=== PATIENT | male | born 1975 | race Caucasian/White ===

== ENCOUNTER → 2017-01-26 | Outpatient (CLI) | payer OTHER ==
[~2017-01-26] MED LIST: AMOXICILLIN500 M2 PO; BRIN10TA PO; ELIQUIS2.5 M1 PO; ELIQUIS5 M1 PO; HYDROCODONE BIT1 T11 PO; NOVAPLUS V0.09 MG/Ac IH; PROAIR RESPICL90 MCG INH; VENTOLIN 02.5 MG/3 M INH
== END | disposition home or self-care (01) ==
LOC: RESCLI 03:40
DX: Z00.01 Encounter for general adult medical examination with abnormal findings (principal); I82.492 Acute embolism and thrombosis of other specified deep vein of left lower extremity; I26.99 Other pulmonary embolism without acute cor pulmonale; J45.30 Mild persistent asthma, uncomplicated

== ENCOUNTER → 2017-03-04 | Outpatient (CLI) | payer OTHER ==
[2017-03-04 10:13] LABS: BASO # 0.1 10*3/uL (0.0-0.1); BASO % 0.9 % (0.0-1.0); EOS # 0.2 10*3/uL (0.0-0.4); EOS % 3.2 % (1.0-4.0); HEMATOCRIT 44.1 % (42.0-52.0); HEMOGLOBIN 14.5 g/dl (14.0-18.0); LYMPH # 1.9 10*3/uL (1.3-4.4); LYMPH % 29.7 % (27.0-41.0); MEAN CELL VOLUME 96.7 fl (80.0-94.0); MEAN CORPUSCULAR HGB 31.8 pg (27.0-31.0); MEAN CORPUSCULAR HGB CONC 32.9 g/dl (33.0-37.0); MEAN PLATELET VOLUME 10.4 fl (9.6-12.3); MONO # 0.5 10*3/uL (0.1-1.0); MONO % 7.7 % (3.0-9.0); NEUT # 3.7 10*3/uL (2.3-7.9); NEUT % 58.2 % (47.0-73.0); PLATELET COUNT AUTOMATED 231 10*3/uL (130-400); RED BLOOD COUNT 4.56 10*6/uL (4.50-5.90); RED CELL DISTRI WIDTH 13.3 % (0-14.5); WHITE BLOOD COUNT 6.3 10*3/uL (4.8-10.8)
[2017-03-04 10:31] LABS: HEMOGLOBIN A1c 5.5 % (4.8-5.6)
[2017-03-04 10:41] LABS: ALBUMIN 3.3 gm/dl (3.1-4.5); ALKALINE PHOSPHATASE 58 U/L (45-117); BILIRUBIN, TOTAL 0.6 mg/dl (0.2-1.0); BUN 16 mg/dl (7-24); CARBON DIOXIDE 27 mmol/L (21-32); CHLORIDE 106 mmol/L (98-107); CHOLESTEROL 161 mg/dL (<200); EST GLOM FILT AFRICAN AMERICAN > 60 ml/min; GLUCOSE 96 mg/dL (65-99); HDL CHOLESTEROL 35 mg/dl (40-60); LDL CHOLESTEROL 98 mg/dL (9-159); SGOT/AST 19 IU/L (3-35); SGPT/ALT 37 U/L (12-78); SODIUM 143 mmol/L (136-145); TOTAL PROTEIN 6.8 gm/dL (6.4-8.2); TRIGLYCERIDES 140 mg/dl (<150); VLDL CHOLESTEROL 28 mg/dL (6-40)
== END | disposition home or self-care (01) ==
LOC: RESCLI 03:25 → LAB 03:25 → RESCLI 14:35
PROVIDERS: Internal Medicine
DX: Z00.00 Encounter for general adult medical examination without abnormal findings (principal)

== ENCOUNTER → 2017-09-08 | Outpatient (CLI) | payer OTHER | END | disposition home or self-care (01) | LOC: RESCLI 03:34 | DX: J45.909 Unspecified asthma, uncomplicated (principal); I26.92 Saddle embolus of pulmonary artery without acute cor pulmonale; G47.30 Sleep apnea, unspecified; E66.01 Morbid (severe) obesity due to excess calories; F32.9 Major depressive disorder, single episode, unspecified ==

== ENCOUNTER → 2018-02-03 | Outpatient (CLI) | payer OTHER | END | disposition home or self-care (01) | LOC: RESCLI 07:57 | DX: F32.9 Major depressive disorder, single episode, unspecified (principal); M54.6 Pain in thoracic spine; G47.10 Hypersomnia, unspecified; J45.30 Mild persistent asthma, uncomplicated; E66.01 Morbid (severe) obesity due to excess calories; I26.92 Saddle embolus of pulmonary artery without acute cor pulmonale; G47.30 Sleep apnea, unspecified; E55.9 Vitamin D deficiency, unspecified; F17.210 Nicotine dependence, cigarettes, uncomplicated ==

== ENCOUNTER → 2018-03-19 | Outpatient (CLI) | payer OTHER | END | disposition home or self-care (01) | LOC: RAD 10:17 | DX: M54.89 Other dorsalgia (principal); G89.29 Other chronic pain ==

== ENCOUNTER 2019-10-14 15:00 | Emergency (ER) | payer OTHER ==
[~2019-10-14] VITALS: Ht 175.2 cm; Wt 172.4 kg
[2019-10-14] MEDS ORDERED: PROAIR HFA8.5 GM INH (15:13)
== END 2019-10-14 16:08 | disposition home or self-care (01) ==
LOC: ED 15:00
DX: J45.901 Unspecified asthma with (acute) exacerbation (principal); Z86.718 Personal history of other venous thrombosis and embolism; Z86.711 Personal history of pulmonary embolism

== ENCOUNTER → 2020-04-04 | Outpatient (CLI) | payer OTHER ==
[~2020-04-04] MED LIST changes: +PROAIR HFA8.5 GM INH
== END | disposition home or self-care (01) ==
LOC: RESCLI 13:01
DX: Z71.3 Dietary counseling and surveillance (principal); J45.909 Unspecified asthma, uncomplicated; E66.01 Morbid (severe) obesity due to excess calories; F41.9 Anxiety disorder, unspecified; M54.5 Low back pain; E03.9 Hypothyroidism, unspecified; R53.83 Other fatigue; G47.30 Sleep apnea, unspecified; Z86.711 Personal history of pulmonary embolism; Z79.899 Other long term (current) drug therapy

== ENCOUNTER → 2020-04-06 | Outpatient (CLI) | payer OTHER | END | disposition home or self-care (01) | LOC: LAB 09:23 | DX: E29.1 Testicular hypofunction (principal) ==

== ENCOUNTER → 2020-07-26 | Outpatient (CLI) | payer OTHER | END | disposition home or self-care (01) | LOC: COVID19 10:30 | PROVIDERS: ATTEND Physician Assistant | DX: Z20.828 Contact with and (suspected) exposure to other viral communicable diseases (principal) ==

== ENCOUNTER → 2020-08-01 | Outpatient (CLI) | payer OTHER ==
[2020-08-01 10:18] LABS: HEMATOCRIT 48.9 % (42.0-52.0); MEAN CELL VOLUME 95.1 fl (80.0-94.0); MEAN CORPUSCULAR HGB CONC 31.5 g/dl (33.0-37.0); MEAN PLATELET VOLUME 10.4 fl (9.6-12.3); RED BLOOD COUNT 5.14 10*6/uL (4.50-5.90); RED CELL DISTRI WIDTH 14.3 % (0-14.5); WHITE BLOOD COUNT 6.1 10*3/uL (4.8-10.8)
[2020-08-01 10:52] LABS: ALBUMIN 3.3 gm/dl (3.1-4.5); BUN 16 mg/dl (7-24); CHLORIDE 106 mmol/L (98-107); CREATININE 1.42 mg/dL (0.70-1.30); POTASSIUM 4.1 mmol/L (3.5-5.1); SGOT/AST 24 IU/L (3-35); SGPT/ALT 37 U/L (12-78); SODIUM 138 mmol/L (136-145); TOTAL PROTEIN 6.8 gm/dL (6.4-8.2)
[2020-08-01 10:53] LABS: ALKALINE PHOSPHATASE 53 U/L (45-117)
== END | disposition home or self-care (01) ==
LOC: LAB 09:56
PROVIDERS: ATTEND Physician Assistant
DX: R69 Illness, unspecified (principal)

== ENCOUNTER → 2020-08-10 | Outpatient (CLI) | payer OTHER ==
[2020-08-10 09:42] LABS: BUN 17 mg/dl (7-24); CHLORIDE 106 mmol/L (98-107); CREATININE 1.37 mg/dL (0.70-1.30); POTASSIUM 4.3 mmol/L (3.5-5.1); SODIUM 139 mmol/L (136-145)
== END | disposition home or self-care (01) ==
LOC: LAB 08:58
PROVIDERS: ATTEND Physician Assistant
DX: M79.10 Myalgia, unspecified site (principal); R79.89 Other specified abnormal findings of blood chemistry

== ENCOUNTER 2024-02-19 22:09 | Emergency (ER) | payer MEDICAID ==
[~2024-02-19] VITALS: Ht 172.7 cm; Wt 198.0 kg
[2024-02-19 22:37] LABS: BASO # 0.1 10*3/uL (0.0-0.1); BASO % 0.7 % (0.0-1.0); EOS # 0.2 10*3/uL (0.0-0.4); EOS % 1.7 % (1.0-4.0); HEMATOCRIT 42.7 % (42.0-52.0); LYMPH % 19.1 % (27.0-41.0); MEAN CELL VOLUME 93.6 fl (80.0-94.0); MEAN CORPUSCULAR HGB 29.2 pg (27.0-31.0); MEAN CORPUSCULAR HGB CONC 31.1 g/dl (33.0-37.0); MEAN PLATELET VOLUME 10.3 fl (9.6-12.3); MONO # 0.7 10*3/uL (0.1-1.0); MONO % 6.7 % (3.0-9.0); NEUT # 7.5 10*3/uL (2.3-7.9); NEUT % 71.3 % (47.0-73.0); PLATELET COUNT AUTOMATED 266 10*3/uL (130-400); RED BLOOD COUNT 4.56 10*6/uL (4.50-5.90); RED CELL DISTRI WIDTH 15.1 % (0-14.5); WHITE BLOOD COUNT 10.6 10*3/uL (4.8-10.8)
[2024-02-19 23:00] LABS: ALKALINE PHOSPHATASE 60 U/L (46-116); BUN 17 mg/dl (9-23); CHLORIDE 105 mmol/L (98-107); SGPT/ALT 27 U/L (5-49); TOTAL PROTEIN 6.6 gm/dL (6.0-8.0)
== END 2024-02-20 01:11 | disposition home or self-care (01) ==
LOC: ED 22:09
PROVIDERS: Internal Medicine
DX: R55 Syncope and collapse (principal); R42 Dizziness and giddiness; R53.1 Weakness; J45.909 Unspecified asthma, uncomplicated

== ENCOUNTER → 2024-11-21 | Day surgery (SDC) | payer MEDICARE, MEDICAID ==
[~2024-11-21] VITALS: Ht 175.2 cm; Wt 181.4 kg
[~2024-11-21] MED LIST changes: +Ketamine Hydrochloride 50 MG/5 ML SYRINGE IV ONE; +Lactated Ringer's Solution 500 ML IV ONE; +Lidocaine Hydrochloride 2% 5 ML SDV IV ONE; +PROPOFOL 100 ML IV ONE; +PROPOFOL 200 MG/20 ML VIAL IV ONE
[2024-11-21 08:25] VITALS: BP 148/78
[2024-11-21 10:03] VITALS: BP 123/48
[2024-11-21 10:18] VITALS: BP 115/52
[2024-11-21 10:29] VITALS: BP 131/80
== END | disposition home or self-care (01) ==
LOC: SDC 10-06 08:00
PROVIDERS: ATTEND Surgery
DX: R19.5 Other fecal abnormalities (principal); D12.2 Benign neoplasm of ascending colon; K63.5 Polyp of colon; K64.8 Other hemorrhoids; J45.909 Unspecified asthma, uncomplicated; E07.9 Disorder of thyroid, unspecified; G47.30 Sleep apnea, unspecified; F10.90 Alcohol use, unspecified, uncomplicated; Z98.890 Other specified postprocedural states; Z79.890 Hormone replacement therapy; Z79.899 Other long term (current) drug therapy